=== PATIENT | male | born 1965 | race Caucasian/White ===

== ENCOUNTER 2020-09-13 11:51 | Emergency (ER) | payer MEDICAID ==
[~2020-09-13] VITALS: Ht 167.6 cm; Wt 86.2 kg
[2020-09-13 11:55] VITALS: BP 157/86
--- NOTE | 2020-09-13 11:55 | NUR ---
to bed ambulatory
--- NOTE | 2020-09-13 12:09 | NUR ---
PA Malik at the bedside evaluating patient.
[2020-09-13] MEDS ORDERED: KETOROLAC 15 MG/ML VIAL IVP ONE (12:15)
--- NOTE | 2020-09-13 12:15 | NUR ---
Patient is a 54 y/o male c/o right knee pain x2 weeks; also c/o subjective warmth to the knee, redness, swelling to the knee. Patient denies injury or trauma. PMH DM NKA RX: denies
--- NOTE | 2020-09-13 12:17 | NUR ---
Dr. Salvador is evaluating the patient at bedside.
--- NOTE | 2020-09-13 12:38 | NUR ---
technician's helper at bedside.
[2020-09-13 12:40] LABS: BASOPHILS % (AUTO) 0.4 % (0.0-2.0); EOSINOPHILS # (AUTO) 0.1 K/uL (0-0.4); EOSINOPHILS % (AUTO) 0.7 % (0.0-4.0); HEMOGLOBIN 14.8 g/dL (12.0-18.0); LYMPHOCYTES # (AUTO) 2.1 K/uL (2.0-11.5); LYMPHOCYTES % (AUTO) 20.7 % (20.5-51.1); MEAN CORPUSCULAR HEMOGLOBIN 32 pg (27-31); MEAN CORPUSCULAR HGB CONC 35 g/dL (33-37); MEAN CORPUSCULAR VOLUME 90.1 fL (80-94); MONOCYTES # (AUTO) 0.7 K/uL (0.8-1.0); MONOCYTES % (AUTO) 7.2 % (1.7-9.3); NEUTROPHILS # (AUTO) 7.2 K/uL (1.8-7.7); PLATELET COUNT (AUTO) 280 K/uL (140-450); RED BLOOD CELL COUNT(AUTO) 4.67 MIL/uL (4.20-6.10); RED CELL DISTRIBUTION WIDTH 12.3 % (11.6-13.7); WHITE BLOOD COUNT (AUTO) 10.1 K/uL (4.8-10.8)
[2020-09-13 12:53] LABS: ALBUMIN 3.6 g/dL (3.4-5.0); ANION GAP 11.7 (8-16); CARBON DIOXIDE 28.7 mmol/L (21-32); CREATININE 0.8 mg/dL (0.6-1.3); POTASSIUM 4.4 mmol/L (3.5-5.1); TOTAL BILIRUBIN 0.7 mg/dL (0.0-1.0)
[2020-09-13] MEDS ORDERED: NACL 0.9% 1,000 ML IV ONE (13:05)
[2020-09-13 13:10] LABS: URIC ACID 3.1 mg/dL (2.6-7.2)
[2020-09-13] MEDS ORDERED: ACET-8386 PO (13:22)
[2020-09-13 14:42] VITALS: BP 157/86
--- NOTE | 2020-09-13 14:43 | NUR ---
Patient discharged with v/s stable. Written and verbal after care instructions given and explained. Patient alert, oriented and verbalized understanding of instructions. Ambulatory with steady gait. All questions addressed prior to discharge. ID band removed. Patient advised to follow up with PMD. Rx of hydrocodone/acetaminophen given. Patient educated on indication of medication including possible reaction and side effects. Opportunity to ask questions provided and answered.
== END 2020-09-13 14:42 | disposition home or self-care (01) ==
LOC: MED 11:51
DX: M70.41 Prepatellar bursitis, right knee (principal); E11.9 Type 2 diabetes mellitus without complications; I10 Essential (primary) hypertension; Z79.899 Other long term (current) drug therapy
CPT/HCPCS: 36415; 73562; 80053; 83605; 84550; 85025; 85651; 86140; 96361; 96374; 99284; J1885; J7030